=== PATIENT | female | born 1945 | race Two or more races ===

== ENCOUNTER 2021-01-17 07:25 | Emergency (ER) | payer MEDICARE, OTHER ==
[~2021-01-17] VITALS: Ht 160 cm; Wt 68.0 kg
--- NOTE | 2021-01-17 07:46 | NUR ---
RECEIVED PT, C/O DISCOMFORT IN AB AREA, STATED FILLED WITH GAS AND IT IS UNCOMFORTABLE, HTN NOTED B/P 174/93 PULSE 133, IV LINE STARTED AND BLOOD BEING DRAWN FOR LABS AT THIS TIME, WILL PROVIDE WATER AND COMFORT, EKG ORDERED AND CARRIED OUT
[2021-01-17] MEDS ORDERED: IV NS 0.9% 500 ML BAG IV ONE (08:00)
[2021-01-17] MEDS ORDERED: ONDANSETRON HCL/PF 4 MG/2 ML VIAL IVP ONE (08:00)
--- NOTE | 2021-01-17 08:10 | NUR ---
Jasen vo in [facility] - 01/17/21 at 0811 by EYAL MOVE SHEET SUBMITTED
[2021-01-17 08:30] LABS: CALCIUM, SERUM 9.4 mg/dL (8.5-10.1); CARBON DIOXIDE 28 mmol/L (21-32); CHLORIDE 104 mmol/L (98-107); GLUCOSE 119 mg/dL (74-106); POTASSIUM 4.8 mmol/L (3.5-5.1); SODIUM SERUM 141 mmol/L (136-145); UREA NITROGEN, BLOOD 18 mg/dL (7-18)
[2021-01-17] MEDS ORDERED: METO-357 PO (08:31)
[2021-01-17] MEDS ORDERED: METO25TA20 PO (08:31)
[2021-01-17] MEDS ORDERED: ASPI-1420 PO (08:31)
[2021-01-17 08:35] LABS: ALANINE AMINOTRANSFERASE 32 U/L (12-78); ALBUMIN 3.7 g/dL (3.4-5.0); ALKALINE PHOSPHATASE 112 U/L (46-116); ASPARTATE AMINOTRANSFERASE 33 U/L (15-37); BILIRUBIN,DIRECT 0.1 mg/dL (0.0-0.2); BILIRUBIN,TOTAL 0.5 mg/dL (0.2-1.0); LIPASE 181 U/L (73-393)
[2021-01-17 08:39] LABS: BASOPHILS % (AUTO) 0.5 % (0.0-2.0); EOSINOPHILS % (AUTO) 3.3 % (0.0-6.0); HEMATOCRIT 44 % (33-45); HEMOGLOBIN 14.5 g/dL (11.5-14.8); LYMPHOCYTES # (AUTO) 2.4 K/uL (0.8-4.8); MEAN CORPUSCULAR HGB CONC 33 g/dl (31.0-36.0); MEAN CORPUSCULAR VOLUME 87 fL (82-100); MONOCYTES # (AUTO) 0.5 K/uL (0.1-1.30); MONOCYTES % (AUTO) 7.4 % (2.0-12.0); NEUTROPHILS # (AUTO) 3.1 K/uL (1.8-8.9); NEUTROPHILS % (AUTO) 49.8 % (43.0-81.0); PLATELET COUNT (AUTO) 203 K/uL (150-450); RED BLOOD CELL COUNT(AUTO) 5.06 MIL/uL (4.0-5.2); WHITE BLOOD COUNT (AUTO) 6.2 K/uL (4.3-11.0)
[2021-01-17] MEDS ORDERED: ONDANSETRON HCL/PF 4 MG/2 ML VIAL ONE (08:44)
[2021-01-17] MEDS ORDERED: AZIT250T13 PO (09:46)
[2021-01-17] MEDS ORDERED: AMOX-430 PO (09:46)
[2021-01-17 10:34] VITALS: BP 138/64
== END 2021-01-17 10:10 | disposition home or self-care (01) ==
LOC: ER 07:32
DX: I10 Essential (primary) hypertension (principal); R53.83 Other fatigue; R11.0 Nausea; R91.8 Other nonspecific abnormal finding of lung field; Z20.822 Contact with and (suspected) exposure to COVID-19; E78.5 Hyperlipidemia, unspecified; Z60.2 Problems related to living alone; Z79.899 Other long term (current) drug therapy; Z79.82 Long term (current) use of aspirin
CPT/HCPCS: 36415; 71045; 80048; 80076; 83690; 84484; 85025; 93005; 96374; 99285; J2405; J7030

== ENCOUNTER 2021-01-19 00:02 | Emergency (ER) | payer MEDICARE, OTHER ==
[~2021-01-19] VITALS: Ht 152.4 cm; Wt 68.0 kg
[~2021-01-19 00:02] MED LIST: AMOX-430 PO; ASPI-1420 PO; AZIT250T13 PO; METO-357 PO; METO25TA20 PO
[2021-01-19 00:20] VITALS: BP 173/95
== END 2021-01-19 00:44 | disposition home or self-care (01) ==
LOC: ER 00:04
DX: I10 Essential (primary) hypertension (principal); E78.5 Hyperlipidemia, unspecified; Z60.2 Problems related to living alone; Z79.899 Other long term (current) drug therapy; Z79.82 Long term (current) use of aspirin